=== PATIENT | female | born 2000 | race African-American/Black ===

== ENCOUNTER 2020-09-23 09:07 | Emergency (ER) | payer MEDICAID ==
--- NOTE | 2020-09-23 09:57 | NUR ---
PATIENT LEFT WITHOUT BEING SEEN BY DR. MAS WHILE WAITING FOR BEING TRIAGED. NO FURTHER CARE PROVIDED FOR PATIENT. DR. LEE MADE AWARE.
== END 2020-09-23 09:57 | disposition left against medical advice (07) ==
LOC: MED 09:07
DX: Z53.21 Procedure and treatment not carried out due to patient leaving prior to being seen by health care provider (principal)